=== PATIENT | female | born 1955 | race Caucasian/White ===

== ENCOUNTER 2016-06-09 12:28 | Emergency (ER) | payer MEDICAID ==
[2016-06-09 12:38] VITALS: BP 115/82; PULSE 95; RESP 16; TEMP 98.2; O2SAT 95
--- NOTE | 2016-06-09 13:18 | EDPHY ---
H & P Stated Complaint: Chronic low back pain and bilateral knee pain/hiding from police Time Seen by Provider: 06/09/16 12:43 HPI/ROS: CHIEF COMPLAINT: Low back pain and right foot pain HISTORY OF PRESENT ILLNESS: Patient is a 60-year-old homeless female who comes to the emergency department complaining of low back pain and right foot pain. She states that they are chronic. She states that she has this pain from having to use her walker to walk through the field to hide from police because she is homeless. She denies any acute trauma or injury. She denies any fevers or recent illness. REVIEW OF SYSTEMS: Constitutional: denies: chills, fever, recent illness, recent injury EENTM: denies: blurred vision, double vision, nose congestion Respiratory: denies: cough, shortness of breath Cardiac: denies: chest pain, irregular heart rate, lightheadedness, palpitations Gastrointestinal/Abdominal: denies: abdominal pain, diarrhea, nausea, vomiting, blood streaked stools Genitourinary: denies: dysuria, frequency, hematuria, pain Musculoskeletal: See HPI Skin: denies: lesions, rash, jaundice, bruising Neurological: denies: headache, numbness, paresthesia, tingling, dizziness, weakness Hematologic/Lymphatic: denies: blood clots, easy bleeding, easy bruising Immunologic/allergic: denies: HIV/AIDS, transplant EXAM: GENERAL: Well-appearing, well-nourished and in no acute distress. HEAD: Atraumatic, normocephalic. EYES: Pupils equal round and reactive to light, extraocular movements intact, sclera anicteric, conjunctiva are normal. ENT: TMs normal, nares patent, oropharynx clear without exudates. Moist mucous membranes. NECK: Normal range of motion, supple without lymphadenopathy or JVD. LUNGS: Breath sounds clear to auscultation bilaterally and equal. No wheezes rales or rhonchi. HEART: Regular rate and rhythm without murmurs, rubs or gallops. ABDOMEN: Soft, nontender, normoactive bowel sounds. No guarding, no rebound. No masses appreciated. BACK: No CVA tenderness, no spinal tenderness, step-offs or deformities EXTREMITIES: Normal range of motion, no pitting or edema. No clubbing or cyanosis. no visible foot deformity or swelling or erythema. NEUROLOGICAL: Cranial nerves II through XII grossly intact. Normal speech, normal gait. 5/5 strength, normal movement in all extremities, normal sensation PSYCH: Normal mood, normal affect. SKIN: Warm, dry, normal turgor, no visible rashes or lesions. Source: Patient Exam Limitations: No limitations - Personal History Current Tetanus/Diphtheria Vaccine: Unsure Tetanus Vaccine Date: < 10 YEARS - Medical/Surgical History Hx Asthma: No Hx Chronic Respiratory Disease: No Hx Diabetes: No Hx Cardiac Disease: No Hx Renal Disease: No Hx Cirrhosis: No Hx Alcoholism: No Hx HIV/AIDS: No Hx Splenectomy or Spleen Trauma: No Other PMH: HERNIA SURGERY, chronic low back pain, and chronic knee pain. - Family History Significant Family History: No pertinent family hx - Social History Smoking Status: Light smoker Alcohol Use: Sober Drug Use: None Constitutional: Initial Vital Signs Temperature (C) 36.8 C 06/09/16 12:33 Heart Rate 95 06/09/16 12:33 Respiratory Rate 16 06/09/16 12:33 Blood Pressure 115/82 H 06/09/16 12:33 O2 Sat (%) 95 06/09/16 12:33 O2 Delivery Mode Room Air Allergies/Adverse Reactions: Penicillins Allergy (Intermediate, Verified 06/09/16 12:38) Rash Home Medications: Medication Instructions Recorded NK [No Known Home Meds] 06/09/16 Medical Decision Making ED Course/Re-evaluation: The patient does not have any acute injury. She is very cryptic about what her pain is and why it hurts. She repeatedly tells me about her social situations and needing to carry her walker through the field to hide from police so that she does not get arrested. She has no signs of injury. We discussed our policy on treating chronic pain. I offered her Tylenol and ibuprofen. She told me that these do not work. I offered her like derm patch which she declines. I will refer her to primary care physician. She does not have any neurologic deficits. I am concerned she is here exhibiting malingering and drug-seeking behavior. I will not prescribe her pain medication. Differential Diagnosis: Partial list of the Differential diagnosis considered include but were not limited to; malingering, chronic back pain, substance abuse, muscle strain and although unlikely based on the history and physical exam, I also considered radiculopathy, fracture, spinal cord impingement, infection. I discussed these differential diagnoses and the plan with the patient as well as the usual and expected course. The patient understands that the diagnosis is provisional and that in medicine we are not always correct and that further workup is often warranted. Usual and customary warnings were given. All of the patient's questions were answered. The patient was instructed to return to the emergency department should the symptoms at all worsen or return, otherwise to followup with the physician as we discussed. Departure - Departure Disposition: Home, Routine, Self-Care Clinical Impression: Back pain Qualifiers: Back pain location: low back pain Chronicity: chronic Back pain laterality: midline Sciatica presence: without sciatica Qualified Code(s): M54.5 - Low back pain Condition: Fair Instructions: Chronic Back Pain (ED) Referrals: Giovana Cadena DO [Doctor of Osteopathy] - As per Instructions
== END 2016-06-09 13:37 | disposition home or self-care (01) ==
DX: M54.5 Low back pain (principal); F17.200 Nicotine dependence, unspecified, uncomplicated